=== PATIENT | female | born 1955 | race Caucasian/White ===

== ENCOUNTER 2017-11-06 01:32 | Inpatient (IN) | payer MEDICARE ==
[2017-11-06] MEDS: IV NORMAL SALINE 1000ML BAG 1,000 ML IV ×2 (04:16→18:24)
[2017-11-06] MEDS: ONDANSETRON PF 4 MG/2 ML VIAL. IV ×3 (04:17→19:42)
[2017-11-06] MEDS: KETOROLAC 30 MG/ML INJ. IV ×3 (04:17→18:22)
[2017-11-06] MEDS: PANTOPRAZOLE IV PUSH 40 MG VIAL. IVP (06:57)
[2017-11-06 07:15] LABS: POC GLUCOSE 229 mg/dL (70-99)
[2017-11-06 08:23] LABS: POC GLUCOSE 182 mg/dL (70-99)
[2017-11-06] MEDS: MORPHINE SULFATE 4 MG/ML DISP.SYRIN. IV ×5 (08:35→19:43)
[2017-11-06] MEDS: IOHEXOL 300 MG/ML 100ML VIAL. PO ×2 (09:45→11:57)
[2017-11-06] MEDS ORDERED: CONTRAST GIVEN MC (09:45)
[2017-11-06 10:13] LABS: HEMATOCRIT 44.3 % (36.0-47.0); HEMOGLOBIN 15.2 g/dL (12.0-15.5); MEAN CORPUSCULAR HEMOGLOBIN 32 pg (25-35); MEAN CORPUSCULAR HGB CONC 34 g/dL (31-37); MEAN CORPUSCULAR VOLUME 92 fL (79-100); PLATELET COUNT 352 x10^3/uL (140-400); RED BLOOD COUNT 4.82 x10^6/uL (3.50-5.40); RED CELL DISTRIBUTION WIDTH 13.6 % (11.5-14.5); WHITE BLOOD COUNT 10.3 x10^3/uL (4.0-11.0)
[2017-11-06 10:15] LABS: ANION GAP 2 (6-14); BLOOD UREA NITROGEN 21 mg/dL (7-20); CALCIUM 9.1 mg/dL (8.5-10.1); CARBON DIOXIDE 35 mmol/L (21-32); CHLORIDE 99 mmol/L (98-107); GFR 56.4; GLUCOSE 234 mg/dL (70-99); POTASSIUM 4.8 mmol/L (3.5-5.1); SODIUM 136 mmol/L (136-145)
[2017-11-06] MEDS ORDERED: DEXTROSE 50% 25 GM / 50ML DISP.SYRIN. IV (11:45)
[2017-11-06] MEDS: IPRATRPIUM/ALBUTEROL 0.5/2.5MG 3 ML NEBU. NEB ×3 (11:52→20:00)
[2017-11-06] MEDS ORDERED: IPRATRPIUM/ALBUTEROL 0.5/2.5MG 3 ML NEBU. NEB (12:00)
[2017-11-06 14:51] LABS: POC GLUCOSE 286 mg/dL (70-99)
[2017-11-06] MEDS: ENOXAPARIN 40 MG/0.4 ML SYRINGE. SQ (15:59)
[2017-11-06] MEDS: INSULIN LISPRO 300 UNITS/3 ML INSULN.PEN. SQ ×4 (16:08→17:00)
[2017-11-06 16:22] LABS: INR 1.1 (0.8-1.1); PROTHROMBIN TIME PATIENT 13.4 SEC (11.7-14.0)
[2017-11-06 21:08] LABS: POC GLUCOSE 233 mg/dL (70-99)
[2017-11-06] MEDS: INSULIN GLARGINE 300 UNITS/3 ML INSULN.PEN. SQ (21:52)
[2017-11-06] MEDS ORDERED: PROMETHAZINE 12.5 MG TABLET. PO (23:15)
[2017-11-07] MEDS: ONDANSETRON PF 4 MG/2 ML VIAL. IV ×2 (00:12→08:27)
[2017-11-07] MEDS: MORPHINE SULFATE 4 MG/ML DISP.SYRIN. IV ×5 (00:12→18:01)
[2017-11-07] MEDS: PROMETHAZINE 12.5 MG SUPP.RECT. PR (02:01)
[2017-11-07 04:34] LABS: HEMATOCRIT 45.4 % (36.0-47.0); HEMOGLOBIN 15.3 g/dL (12.0-15.5); MEAN CORPUSCULAR HEMOGLOBIN 31 pg (25-35); MEAN CORPUSCULAR HGB CONC 34 g/dL (31-37); MEAN CORPUSCULAR VOLUME 93 fL (79-100); PLATELET COUNT 349 x10^3/uL (140-400); RED CELL DISTRIBUTION WIDTH 13.4 % (11.5-14.5); WHITE BLOOD COUNT 10.6 x10^3/uL (4.0-11.0)
[2017-11-07 04:51] LABS: ALBUMIN 3.2 g/dL (3.4-5.0); ALBUMIN/GLOBULIN RATIO 0.7 (1.0-1.7); ALK PHOS 120 U/L (46-116); ALT (SGPT) 27 U/L (14-59); ANION GAP 5 (6-14); AST (SGOT) 19 U/L (15-37); BLOOD UREA NITROGEN 27 mg/dL (7-20); BUN/CREATININE RATIO 27 (6-20); CALCIUM 9.5 mg/dL (8.5-10.1); CARBON DIOXIDE 32 mmol/L (21-32); CHLORIDE 100 mmol/L (98-107); GFR 56.4; GLUCOSE 259 mg/dL (70-99); LIPASE 65 U/L (73-393); POTASSIUM 4.6 mmol/L (3.5-5.1); SODIUM 137 mmol/L (136-145); TOTAL BILIRUBIN 1.2 mg/dL (0.2-1.0)
[2017-11-07] MEDS: IV NORMAL SALINE 1000ML BAG 1,000 ML IV ×4 (05:00→17:35)
[2017-11-07] MEDS: PANTOPRAZOLE 40 MG TABLET.DR. PO (05:33)
[2017-11-07] MEDS: IPRATRPIUM/ALBUTEROL 0.5/2.5MG 3 ML NEBU. NEB ×5 (07:11→19:34)
[2017-11-07 07:55] LABS: SEDIMENTATION RATE 30 (0-25)
[2017-11-07] MEDS: INSULIN LISPRO 300 UNITS/3 ML INSULN.PEN. SQ ×6 (08:00→17:00)
[2017-11-07 08:14] LABS: POC GLUCOSE 256 mg/dL (70-99)
[2017-11-07] MEDS: KETOROLAC 30 MG/ML INJ. IV (08:28)
[2017-11-07] MEDS: IV RINGERS,LACTATED 1000ML 1,000 ML IV (09:04)
[2017-11-07] MEDS ORDERED: ONDANSETRON PF 4 MG/2 ML VIAL. IV ×2 (09:15→12:15)
[2017-11-07] MEDS ORDERED: HYDROmorphone 2 MG/ML VIAL IV (09:15)
[2017-11-07] MEDS ORDERED: MORPHINE SULFATE 2 MG/ML DISP.SYRIN. IV (09:15)
[2017-11-07] MEDS ORDERED: fentaNYL PF VIAL 100 MCG/2 ML VIAL IV ×2 (09:15)
[2017-11-07] MEDS ORDERED: PROCHLORPERAZINE 10 MG/2 ML VIAL. IV (09:15)
[2017-11-07] MEDS ORDERED: LIDOCAINE 1% PF 2 ML VIAL. ID (09:15)
[2017-11-07] MEDS ORDERED: LIDOCAINE 2% PF Vial for OR 5 ML VIAL. (09:19)
[2017-11-07] MEDS ORDERED: SUCCINYLCHOLINE 200 MG/10 ML VIAL. (09:19)
[2017-11-07] MEDS ORDERED: PROPOFOL 20 ML IV (09:19)
[2017-11-07] MEDS ORDERED: ROCURONIUM 50 MG/5 ML VIAL. ×2 (09:19→11:31)
[2017-11-07] MEDS ORDERED: DEXAMETHASONE SOD PHOS 20 MG/5 ML VIAL. (09:19)
[2017-11-07] MEDS ORDERED: MIDAZOLAM HCL/PF 2 MG/2 ML VIAL. (09:20)
[2017-11-07] MEDS ORDERED: fentaNYL PF VIAL 100 MCG/2 ML VIAL ×2 (09:20→11:22)
[2017-11-07 10:01] LABS: POC GLUCOSE 274 mg/dL (70-99)
[2017-11-07] MEDS: INSULIN REGULAR 100 UNIT/ML 3ML VIAL. SQ (10:07)
[2017-11-07] MEDS ORDERED: ceFAZolin SODIUM 3 GM in IV DEXTROSE 5% 100 ML IV (10:15)
[2017-11-07] MEDS ORDERED: GLYCOPYRROLATE 1 MG/5 ML VIAL. (11:33)
[2017-11-07] MEDS ORDERED: NEOSTIGMINE METHYLSULFATE 5 MG/5 ML SYRINGE. (11:33)
[2017-11-07] MEDS: ENOXAPARIN 40 MG/0.4 ML SYRINGE. SQ (11:53)
[2017-11-07] MEDS ORDERED: DESFLURANE 61 TO 120 MINUTES IH (11:55)
[2017-11-07] MEDS ORDERED: 0.9 % SODIUM CHLORIDE 10 ML DISP.SYRIN. IV (12:15)
[2017-11-07] MEDS ORDERED: oxyCODONE/APAP 5/325 1 TAB TABLET PO (12:15)
[2017-11-07] MEDS ORDERED: MORPHINE SULFATE 4 MG/ML DISP.SYRIN. IV (12:15)
[2017-11-07] MEDS: INSULIN REGULAR VIAL 150 UNIT in 0.9 % SODIUM CHLORIDE 150ML 150 ML IV ×2 (12:48→14:03)
[2017-11-07 14:07] LABS: POC GLUCOSE 232 mg/dL (70-99)
[2017-11-07 14:07] LABS: POC GLUCOSE 207 mg/dL (70-99)
[2017-11-07 14:41] LABS: POC GLUCOSE 239 mg/dL (70-99)
[2017-11-07] MEDS ORDERED: INSULIN GLARGINE 300 UNITS/3 ML INSULN.PEN. SQ (15:30)
[2017-11-07] MEDS: PANTOPRAZOLE IV PUSH 40 MG VIAL. IVP (15:38)
[2017-11-07] MEDS: INSULIN GLARGINE 300 UNITS/3 ML INSULN.PEN. SQ ×2 (15:42→21:30)
[2017-11-07 16:30] LABS: POC GLUCOSE 198 mg/dL (70-99)
[2017-11-07 17:12] LABS: POC GLUCOSE 181 mg/dL (70-99)
[2017-11-07 19:05] LABS: MEAN CORPUSCULAR HEMOGLOBIN 31 pg (25-35); MEAN CORPUSCULAR HGB CONC 33 g/dL (31-37); MEAN CORPUSCULAR VOLUME 93 fL (79-100); PLATELET COUNT 354 x10^3/uL (140-400); RED BLOOD COUNT 4.84 x10^6/uL (3.50-5.40); RED CELL DISTRIBUTION WIDTH 13.7 % (11.5-14.5)
[2017-11-07 20:52] LABS: POC GLUCOSE 199 mg/dL (70-99)
[2017-11-07] MEDS: DOCUSATE SODIUM 100 MG CAPSULE. PO (21:00)
[2017-11-08 05:27] LABS: ADD MAN DIFF? NO
[2017-11-08 05:46] LABS: BASO # 0.1 x10^3/uL (0.0-0.2); BASO % 0 % (0-3); EOS % 0 % (0-3); HEMATOCRIT 47.7 % (36.0-47.0); HEMOGLOBIN 15.4 g/dL (12.0-15.5); LYMPH # 0.6 x10^3/uL (1.0-4.8); LYMPH % 5 % (24-48); MEAN CORPUSCULAR HEMOGLOBIN 31 pg (25-35); MEAN CORPUSCULAR HGB CONC 32 g/dL (31-37); MONO # 1.2 x10^3/uL (0.0-1.1); MONO % 10 % (0-9); NEUT # 10.8 x10^3uL (1.8-7.7); NEUT % 85 % (31-73); PLATELET COUNT 346 x10^3/uL (140-400); RED BLOOD COUNT 4.97 x10^6/uL (3.50-5.40); RED CELL DISTRIBUTION WIDTH 14.3 % (11.5-14.5); WHITE BLOOD COUNT 12.7 x10^3/uL (4.0-11.0)
[2017-11-08 05:49] LABS: MEAN CORPUSCULAR VOLUME 95 fL (79-100)
[2017-11-08 06:00] LABS: ANION GAP 12 (6-14); BLOOD UREA NITROGEN 28 mg/dL (7-20); CALCIUM 9.1 mg/dL (8.5-10.1); CARBON DIOXIDE 28 mmol/L (21-32); CHLORIDE 99 mmol/L (98-107); CREATININE 1.1 mg/dL (0.6-1.0); GFR 50.5; GLUCOSE 192 mg/dL (70-99); POTASSIUM 4.7 mmol/L (3.5-5.1); SODIUM 139 mmol/L (136-145)
[2017-11-08] MEDS: PANTOPRAZOLE 40 MG TABLET.DR. PO (06:56)
[2017-11-08] MEDS: oxyCODONE/APAP 5/325 1 TAB TABLET PO ×3 (06:58→21:35)
[2017-11-08] MEDS: IV NORMAL SALINE 1000ML BAG 1,000 ML IV ×4 (06:58→16:27)
[2017-11-08] MEDS: IPRATRPIUM/ALBUTEROL 0.5/2.5MG 3 ML NEBU. NEB ×4 (07:06→18:21)
[2017-11-08 07:45] LABS: POC GLUCOSE 235 mg/dL (70-99)
[2017-11-08] MEDS: DOCUSATE SODIUM 100 MG CAPSULE. PO ×2 (08:49→21:23)
[2017-11-08] MEDS: INSULIN LISPRO 300 UNITS/3 ML INSULN.PEN. SQ ×6 (08:56→17:39)
[2017-11-08 11:36] LABS: POC GLUCOSE 243 mg/dL (70-99)
[2017-11-08] MEDS: KETOROLAC 30 MG/ML INJ. IV (16:26)
[2017-11-08 16:46] LABS: POC GLUCOSE 190 mg/dL (70-99)
[2017-11-08] MEDS: ONDANSETRON PF 4 MG/2 ML VIAL. IV (18:35)
[2017-11-08 21:10] LABS: POC GLUCOSE 222 mg/dL (70-99)
[2017-11-08] MEDS: INSULIN GLARGINE 300 UNITS/3 ML INSULN.PEN. SQ (21:29)
[2017-11-09] MEDS: KETOROLAC 30 MG/ML INJ. IV ×4 (00:03→18:16)
[2017-11-09] MEDS: oxyCODONE/APAP 5/325 1 TAB TABLET PO (03:20)
[2017-11-09] MEDS: PANTOPRAZOLE 40 MG TABLET.DR. PO (06:14)
[2017-11-09] MEDS: IV NORMAL SALINE 1000ML BAG 1,000 ML IV ×3 (06:15→16:30)
[2017-11-09] MEDS: IPRATRPIUM/ALBUTEROL 0.5/2.5MG 3 ML NEBU. NEB ×4 (07:18→19:46)
[2017-11-09 07:55] LABS: POC GLUCOSE 192 mg/dL (70-99)
[2017-11-09] MEDS: INSULIN LISPRO 300 UNITS/3 ML INSULN.PEN. SQ ×6 (08:00→17:00)
[2017-11-09] MEDS: DOCUSATE SODIUM 100 MG CAPSULE. PO ×2 (08:52→22:34)
[2017-11-09] MEDS: ONDANSETRON PF 4 MG/2 ML VIAL. IV ×3 (08:59→22:34)
[2017-11-09 11:29] LABS: POC GLUCOSE 215 mg/dL (70-99)
[2017-11-09] MEDS: PROMETHAZINE 12.5 MG SUPP.RECT. PR (12:06)
[2017-11-09] MEDS ORDERED: traMADol 50 MG TABLET PO (13:30)
[2017-11-09] MEDS ORDERED: ONDANSETRON ODT 4 MG TAB.RAPDIS. PO (13:30)
[2017-11-09] MEDS: buPROPion XL 150 MG TAB.ER.24H. PO (14:00)
[2017-11-09] MEDS: METOPROLOL TART IMMED RELEASE 25 MG TABLET. PO ×2 (14:00→22:35)
[2017-11-09] MEDS: LISINOPRIL 5 MG TABLET. PO (14:00)
[2017-11-09] MEDS: VENLAFAXINE 75 MG TABLET. PO ×2 (14:00→22:35)
[2017-11-09 17:15] LABS: POC GLUCOSE 199 mg/dL (70-99)
[2017-11-09] MEDS: MORPHINE SULFATE 4 MG/ML DISP.SYRIN. IV ×2 (17:17→22:34)
[2017-11-09] MEDS: IV 1/2 NORMAL SALINE 1,000 ML IV (17:17)
[2017-11-09 20:39] LABS: POC GLUCOSE 167 mg/dL (70-99)
[2017-11-09] MEDS: SIMVASTATIN 40 MG TABLET. PO (22:35)
[2017-11-09] MEDS: INSULIN GLARGINE 300 UNITS/3 ML INSULN.PEN. SQ (22:38)
[2017-11-10] MEDS: KETOROLAC 30 MG/ML INJ. IV ×3 (00:19→14:55)
[2017-11-10] MEDS: MORPHINE SULFATE 4 MG/ML DISP.SYRIN. IV ×2 (03:40→20:55)
[2017-11-10 04:38] LABS: HEMATOCRIT 37.9 % (36.0-47.0); MEAN CORPUSCULAR HEMOGLOBIN 32 pg (25-35); MEAN CORPUSCULAR HGB CONC 34 g/dL (31-37); MEAN CORPUSCULAR VOLUME 93 fL (79-100); PLATELET COUNT 314 x10^3/uL (140-400); RED BLOOD COUNT 4.07 x10^6/uL (3.50-5.40); RED CELL DISTRIBUTION WIDTH 13.6 % (11.5-14.5); WHITE BLOOD COUNT 4.7 x10^3/uL (4.0-11.0)
[2017-11-10 04:54] LABS: ALBUMIN 2.3 g/dL (3.4-5.0); ALBUMIN/GLOBULIN RATIO 0.5 (1.0-1.7); ALK PHOS 89 U/L (46-116); ALT (SGPT) 70 U/L (14-59); ANION GAP 5 (6-14); AST (SGOT) 49 U/L (15-37); BLOOD UREA NITROGEN 17 mg/dL (7-20); BUN/CREATININE RATIO 21 (6-20); CALCIUM 8.2 mg/dL (8.5-10.1); CARBON DIOXIDE 29 mmol/L (21-32); CHLORIDE 100 mmol/L (98-107); CREATININE 0.8 mg/dL (0.6-1.0); GFR 72.9; GLUCOSE 163 mg/dL (70-99); POTASSIUM 4.1 mmol/L (3.5-5.1); SODIUM 134 mmol/L (136-145); TOTAL BILIRUBIN 0.7 mg/dL (0.2-1.0); TOTAL PROTEIN 6.5 g/dL (6.4-8.2)
[2017-11-10] MEDS: IV 1/2 NORMAL SALINE 1,000 ML IV ×2 (05:00→17:30)
[2017-11-10] MEDS: IPRATRPIUM/ALBUTEROL 0.5/2.5MG 3 ML NEBU. NEB ×4 (07:09→19:28)
[2017-11-10 07:33] LABS: POC GLUCOSE 133 mg/dL (70-99)
[2017-11-10] MEDS: PANTOPRAZOLE 40 MG TABLET.DR. PO (07:44)
[2017-11-10] MEDS: INSULIN LISPRO 300 UNITS/3 ML INSULN.PEN. SQ ×6 (08:00→16:51)
[2017-11-10] MEDS: buPROPion XL 150 MG TAB.ER.24H. PO (08:51)
[2017-11-10] MEDS: VENLAFAXINE 75 MG TABLET. PO ×2 (08:51→20:56)
[2017-11-10] MEDS: LISINOPRIL 5 MG TABLET. PO (08:52)
[2017-11-10] MEDS: METOPROLOL TART IMMED RELEASE 25 MG TABLET. PO ×2 (08:52→20:56)
[2017-11-10] MEDS: DOCUSATE SODIUM 100 MG CAPSULE. PO ×2 (09:00→20:56)
[2017-11-10] MEDS: ONDANSETRON PF 4 MG/2 ML VIAL. IV ×3 (09:04→20:55)
[2017-11-10 11:29] LABS: POC GLUCOSE 139 mg/dL (70-99)
[2017-11-10] MEDS: PROMETHAZINE 25 MG SUPP.RECT. RC (12:37)
[2017-11-10 15:09] LABS: C DIFF BY PCR Negative (Negative)
[2017-11-10 16:12] LABS: POC GLUCOSE 106 mg/dL (70-99)
[2017-11-10 20:34] LABS: POC GLUCOSE 105 mg/dL (70-99)
[2017-11-10] MEDS: SIMVASTATIN 40 MG TABLET. PO (20:56)
[2017-11-10] MEDS: INSULIN GLARGINE 300 UNITS/3 ML INSULN.PEN. SQ (21:22)
[2017-11-11] MEDS: MORPHINE SULFATE 4 MG/ML DISP.SYRIN. IV ×2 (04:00→15:27)
[2017-11-11] MEDS: ONDANSETRON PF 4 MG/2 ML VIAL. IV ×4 (04:00→21:54)
[2017-11-11 05:30] LABS: HEMATOCRIT 38.3 % (36.0-47.0); HEMOGLOBIN 12.9 g/dL (12.0-15.5); MEAN CORPUSCULAR HEMOGLOBIN 31 pg (25-35); MEAN CORPUSCULAR HGB CONC 34 g/dL (31-37); MEAN CORPUSCULAR VOLUME 93 fL (79-100); PLATELET COUNT 335 x10^3/uL (140-400); RED BLOOD COUNT 4.14 x10^6/uL (3.50-5.40); RED CELL DISTRIBUTION WIDTH 13.3 % (11.5-14.5); WHITE BLOOD COUNT 6.3 x10^3/uL (4.0-11.0)
[2017-11-11 05:42] LABS: ANION GAP 7 (6-14); BLOOD UREA NITROGEN 15 mg/dL (7-20); CALCIUM 8.3 mg/dL (8.5-10.1); CARBON DIOXIDE 28 mmol/L (21-32); CHLORIDE 101 mmol/L (98-107); CREATININE 0.7 mg/dL (0.6-1.0); GFR 85.1; GLUCOSE 94 mg/dL (70-99); SODIUM 136 mmol/L (136-145)
[2017-11-11] MEDS: PANTOPRAZOLE 40 MG TABLET.DR. PO (06:20)
[2017-11-11] MEDS: IV 1/2 NORMAL SALINE 1,000 ML IV ×2 (06:20→18:30)
[2017-11-11] MEDS: KETOROLAC 30 MG/ML INJ. IV ×2 (06:20→09:44)
[2017-11-11] MEDS: PROMETHAZINE 25 MG SUPP.RECT. RC (06:23)
[2017-11-11] MEDS: IPRATRPIUM/ALBUTEROL 0.5/2.5MG 3 ML NEBU. NEB ×2 (07:08→21:00)
[2017-11-11] MEDS: INSULIN LISPRO 300 UNITS/3 ML INSULN.PEN. SQ ×6 (07:42→17:00)
[2017-11-11 08:40] LABS: POC GLUCOSE 69 mg/dL (70-99)
[2017-11-11 08:40] LABS: POC GLUCOSE 89 mg/dL (70-99)
[2017-11-11] MEDS: buPROPion XL 150 MG TAB.ER.24H. PO (09:28)
[2017-11-11] MEDS: VENLAFAXINE 75 MG TABLET. PO ×2 (09:28→20:55)
[2017-11-11] MEDS: LISINOPRIL 5 MG TABLET. PO (09:28)
[2017-11-11] MEDS: METOPROLOL TART IMMED RELEASE 25 MG TABLET. PO ×2 (09:29→20:56)
[2017-11-11] MEDS: DOCUSATE SODIUM 100 MG CAPSULE. PO ×2 (09:40→20:57)
[2017-11-11 14:12] LABS: POC GLUCOSE 75 mg/dL (70-99)
[2017-11-11 17:47] LABS: POC GLUCOSE 75 mg/dL (70-99)
[2017-11-11] MEDS: SIMVASTATIN 40 MG TABLET. PO (20:55)
[2017-11-11] MEDS: INSULIN GLARGINE 300 UNITS/3 ML INSULN.PEN. SQ (21:00)
[2017-11-11 23:50] LABS: POC GLUCOSE 116 mg/dL (70-99)
[2017-11-12] MEDS: KETOROLAC 30 MG/ML INJ. IV ×2 (00:48→07:59)
[2017-11-12] MEDS: IPRATRPIUM/ALBUTEROL 0.5/2.5MG 3 ML NEBU. NEB ×2 (07:24→19:25)
[2017-11-12] MEDS: IV 1/2 NORMAL SALINE 1,000 ML IV ×2 (07:49→18:38)
[2017-11-12] MEDS: PANTOPRAZOLE 40 MG TABLET.DR. PO (07:51)
[2017-11-12] MEDS: INSULIN LISPRO 300 UNITS/3 ML INSULN.PEN. SQ ×6 (08:00→17:00)
[2017-11-12] MEDS: DOCUSATE SODIUM 100 MG CAPSULE. PO ×2 (08:02→21:05)
[2017-11-12 08:27] LABS: POC GLUCOSE 65 mg/dL (70-99)
[2017-11-12 08:27] LABS: POC GLUCOSE 72 mg/dL (70-99)
[2017-11-12] MEDS: VENLAFAXINE 75 MG TABLET. PO ×2 (09:51→21:05)
[2017-11-12] MEDS: buPROPion XL 150 MG TAB.ER.24H. PO (09:51)
[2017-11-12] MEDS: LISINOPRIL 5 MG TABLET. PO (09:52)
[2017-11-12] MEDS: METOPROLOL TART IMMED RELEASE 25 MG TABLET. PO ×2 (09:52→21:05)
[2017-11-12 11:52] LABS: POC GLUCOSE 93 mg/dL (70-99)
[2017-11-12] MEDS: ONDANSETRON PF 4 MG/2 ML VIAL. IV ×2 (14:55→21:13)
[2017-11-12] MEDS: oxyCODONE/APAP 5/325 1 TAB TABLET PO ×2 (14:57→21:05)
[2017-11-12 17:39] LABS: POC GLUCOSE 105 mg/dL (70-99)
[2017-11-12 20:53] LABS: POC GLUCOSE 82 mg/dL (70-99)
[2017-11-12] MEDS: INSULIN GLARGINE 300 UNITS/3 ML INSULN.PEN. SQ (21:00)
[2017-11-12] MEDS: SIMVASTATIN 40 MG TABLET. PO (21:05)
[2017-11-13 05:34] LABS: ADD MAN DIFF? NO
[2017-11-13 05:45] LABS: BASO % 1 % (0-3); EOS # 0.2 x10^3/uL (0.0-0.7); EOS % 3 % (0-3); HEMATOCRIT 36.4 % (36.0-47.0); HEMOGLOBIN 12.3 g/dL (12.0-15.5); LYMPH % 26 % (24-48); MEAN CORPUSCULAR HEMOGLOBIN 32 pg (25-35); MEAN CORPUSCULAR HGB CONC 34 g/dL (31-37); MEAN CORPUSCULAR VOLUME 93 fL (79-100); MONO # 1.1 x10^3/uL (0.0-1.1); MONO % 13 % (0-9); NEUT # 4.6 x10^3uL (1.8-7.7); NEUT % 58 % (31-73); PLATELET COUNT 340 x10^3/uL (140-400); RED BLOOD COUNT 3.91 x10^6/uL (3.50-5.40); RED CELL DISTRIBUTION WIDTH 13.4 % (11.5-14.5)
[2017-11-13 05:59] LABS: ANION GAP 7 (6-14); BLOOD UREA NITROGEN 12 mg/dL (7-20); CALCIUM 7.7 mg/dL (8.5-10.1); CARBON DIOXIDE 28 mmol/L (21-32); CHLORIDE 103 mmol/L (98-107); CREATININE 0.7 mg/dL (0.6-1.0); GFR 85.1; GLUCOSE 86 mg/dL (70-99); POTASSIUM 3.6 mmol/L (3.5-5.1); SODIUM 138 mmol/L (136-145)
[2017-11-13] MEDS: PANTOPRAZOLE 40 MG TABLET.DR. PO (07:06)
[2017-11-13] MEDS: IV 1/2 NORMAL SALINE 1,000 ML IV (07:07)
[2017-11-13] MEDS: INSULIN LISPRO 300 UNITS/3 ML INSULN.PEN. SQ ×6 (08:00→17:00)
[2017-11-13 08:48] LABS: POC GLUCOSE 108 mg/dL (70-99)
[2017-11-13] MEDS: IPRATRPIUM/ALBUTEROL 0.5/2.5MG 3 ML NEBU. NEB ×2 (09:00→20:09)
[2017-11-13] MEDS: DOCUSATE SODIUM 100 MG CAPSULE. PO ×2 (09:00→21:12)
[2017-11-13] MEDS: VENLAFAXINE 75 MG TABLET. PO ×2 (09:56→21:12)
[2017-11-13] MEDS: buPROPion XL 150 MG TAB.ER.24H. PO (09:56)
[2017-11-13] MEDS: LISINOPRIL 5 MG TABLET. PO (09:57)
[2017-11-13] MEDS: METOPROLOL TART IMMED RELEASE 25 MG TABLET. PO ×2 (09:58→21:12)
[2017-11-13] MEDS: oxyCODONE/APAP 5/325 1 TAB TABLET PO ×2 (10:02→19:02)
[2017-11-13] MEDS: ONDANSETRON PF 4 MG/2 ML VIAL. IV ×2 (10:03→14:00)
[2017-11-13 12:19] LABS: POC GLUCOSE 124 mg/dL (70-99)
[2017-11-13 16:55] LABS: POC GLUCOSE 116 mg/dL (70-99)
[2017-11-13 20:31] LABS: POC GLUCOSE 138 mg/dL (70-99)
[2017-11-13] MEDS: SIMVASTATIN 40 MG TABLET. PO (21:12)
[2017-11-13] MEDS: INSULIN GLARGINE 300 UNITS/3 ML INSULN.PEN. SQ (21:17)
[2017-11-14 04:18] LABS: ADD MAN DIFF? NO
[2017-11-14 04:28] LABS: BASO # 0.1 x10^3/uL (0.0-0.2); BASO % 1 % (0-3); EOS # 0.3 x10^3/uL (0.0-0.7); EOS % 2 % (0-3); HEMATOCRIT 38.4 % (36.0-47.0); HEMOGLOBIN 12.8 g/dL (12.0-15.5); LYMPH # 2.2 x10^3/uL (1.0-4.8); LYMPH % 16 % (24-48); MEAN CORPUSCULAR HEMOGLOBIN 31 pg (25-35); MEAN CORPUSCULAR HGB CONC 33 g/dL (31-37); MEAN CORPUSCULAR VOLUME 94 fL (79-100); MONO # 1.6 x10^3/uL (0.0-1.1); MONO % 12 % (0-9); NEUT # 9.5 x10^3uL (1.8-7.7); NEUT % 70 % (31-73); PLATELET COUNT 356 x10^3/uL (140-400); RED CELL DISTRIBUTION WIDTH 13.5 % (11.5-14.5); WHITE BLOOD COUNT 13.7 x10^3/uL (4.0-11.0)
[2017-11-14 04:42] LABS: ANION GAP 2 (6-14); BLOOD UREA NITROGEN 12 mg/dL (7-20); CALCIUM 8.4 mg/dL (8.5-10.1); CARBON DIOXIDE 34 mmol/L (21-32); CHLORIDE 103 mmol/L (98-107); CREATININE 0.8 mg/dL (0.6-1.0); GFR 72.9; GLUCOSE 149 mg/dL (70-99); POTASSIUM 3.9 mmol/L (3.5-5.1); SODIUM 139 mmol/L (136-145)
[2017-11-14] MEDS ORDERED: PANTOPRAZOLE 40 MG TABLET.DR. PO (06:00)
[2017-11-14] MEDS: PANTOPRAZOLE 40 MG TABLET.DR. PO (07:30)
[2017-11-14] MEDS: INSULIN LISPRO 300 UNITS/3 ML INSULN.PEN. SQ ×6 (08:00→17:00)
[2017-11-14] MEDS: IPRATRPIUM/ALBUTEROL 0.5/2.5MG 3 ML NEBU. NEB ×2 (08:10→19:42)
[2017-11-14 08:13] LABS: POC GLUCOSE 130 mg/dL (70-99)
[2017-11-14] MEDS: buPROPion XL 150 MG TAB.ER.24H. PO (08:20)
[2017-11-14] MEDS: METOPROLOL TART IMMED RELEASE 25 MG TABLET. PO ×2 (08:22→22:09)
[2017-11-14] MEDS: LISINOPRIL 5 MG TABLET. PO (08:22)
[2017-11-14] MEDS: VENLAFAXINE 75 MG TABLET. PO ×2 (08:22→22:12)
[2017-11-14] MEDS: DOCUSATE SODIUM 100 MG CAPSULE. PO ×2 (08:22→22:08)
[2017-11-14 11:29] LABS: POC GLUCOSE 183 mg/dL (70-99)
[2017-11-14 17:09] LABS: POC GLUCOSE 87 mg/dL (70-99)
[2017-11-14] MEDS: oxyCODONE/APAP 5/325 1 TAB TABLET PO ×2 (17:50→22:10)
[2017-11-14 21:04] LABS: POC GLUCOSE 164 mg/dL (70-99)
[2017-11-14] MEDS: SIMVASTATIN 40 MG TABLET. PO (22:08)
[2017-11-14] MEDS: INSULIN GLARGINE 300 UNITS/3 ML INSULN.PEN. SQ (22:15)
[2017-11-14] MEDS: NYSTATIN TOPICAL POWDER 15GM BOTTLE. TP (22:16)
[2017-11-15 04:39] LABS: BASO # 0.1 x10^3/uL (0.0-0.2); BASO % 0 % (0-3); EOS # 0.3 x10^3/uL (0.0-0.7); EOS % 2 % (0-3); HEMATOCRIT 38.9 % (36.0-47.0); HEMOGLOBIN 12.9 g/dL (12.0-15.5); LYMPH # 1.9 x10^3/uL (1.0-4.8); LYMPH % 13 % (24-48); MEAN CORPUSCULAR HEMOGLOBIN 31 pg (25-35); MEAN CORPUSCULAR HGB CONC 33 g/dL (31-37); MEAN CORPUSCULAR VOLUME 94 fL (79-100); MONO % 13 % (0-9); NEUT # 10.6 x10^3uL (1.8-7.7); NEUT % 71 % (31-73); PLATELET COUNT 353 x10^3/uL (140-400); RED BLOOD COUNT 4.15 x10^6/uL (3.50-5.40); RED CELL DISTRIBUTION WIDTH 13.7 % (11.5-14.5); WHITE BLOOD COUNT 14.8 x10^3/uL (4.0-11.0)
[2017-11-15 05:06] LABS: ANION GAP 1 (6-14); BLOOD UREA NITROGEN 11 mg/dL (7-20); CALCIUM 8.7 mg/dL (8.5-10.1); CARBON DIOXIDE 37 mmol/L (21-32); CHLORIDE 100 mmol/L (98-107); CREATININE 0.8 mg/dL (0.6-1.0); GFR 72.9; GLUCOSE 71 mg/dL (70-99); POTASSIUM 3.9 mmol/L (3.5-5.1); SODIUM 138 mmol/L (136-145)
[2017-11-15 05:31] LABS: ADD MAN DIFF? YES
[2017-11-15] MEDS: PANTOPRAZOLE 40 MG TABLET.DR. PO (06:23)
[2017-11-15] MEDS: IPRATRPIUM/ALBUTEROL 0.5/2.5MG 3 ML NEBU. NEB ×2 (07:43→20:03)
[2017-11-15] MEDS: oxyCODONE/APAP 5/325 1 TAB TABLET PO ×3 (08:01→21:54)
[2017-11-15] MEDS: buPROPion XL 150 MG TAB.ER.24H. PO (08:02)
[2017-11-15] MEDS: VENLAFAXINE 75 MG TABLET. PO ×2 (08:02→21:52)
[2017-11-15] MEDS: DOCUSATE SODIUM 100 MG CAPSULE. PO ×2 (08:02→21:52)
[2017-11-15] MEDS: LISINOPRIL 5 MG TABLET. PO (08:03)
[2017-11-15] MEDS: METOPROLOL TART IMMED RELEASE 25 MG TABLET. PO ×2 (08:04→21:53)
[2017-11-15 08:07] LABS: POC GLUCOSE 233 mg/dL (70-99)
[2017-11-15] MEDS: INSULIN LISPRO 300 UNITS/3 ML INSULN.PEN. SQ ×6 (08:15→17:43)
[2017-11-15 09:03] LABS: % BANDS 4 % (0-9); % BASOS 1 % (0-3); % EOS 3 % (0-5); % LYMPHS 10 % (24-48); % MONOS 11 % (0-10); % SEGS 71 % (35-66)
[2017-11-15 09:04] LABS: PLT ESTIMATE ADEQUATE (ADEQUATE)
[2017-11-15 09:05] LABS: TOXIC GRANULATION PRESENT
[2017-11-15 12:11] LABS: POC GLUCOSE 253 mg/dL (70-99)
[2017-11-15 17:13] LABS: POC GLUCOSE 102 mg/dL (70-99)
[2017-11-15 21:29] LABS: POC GLUCOSE 174 mg/dL (70-99)
[2017-11-15] MEDS: SIMVASTATIN 40 MG TABLET. PO (21:53)
[2017-11-15] MEDS: INSULIN GLARGINE 300 UNITS/3 ML INSULN.PEN. SQ (21:56)
[2017-11-15] MEDS: ONDANSETRON PF 4 MG/2 ML VIAL. IV (23:43)
[2017-11-16 04:26] LABS: ADD MAN DIFF? NO
[2017-11-16 04:34] LABS: BASO # 0.1 x10^3/uL (0.0-0.2); BASO % 1 % (0-3); EOS # 0.3 x10^3/uL (0.0-0.7); EOS % 2 % (0-3); HEMOGLOBIN 12.4 g/dL (12.0-15.5); LYMPH # 2.4 x10^3/uL (1.0-4.8); LYMPH % 18 % (24-48); MEAN CORPUSCULAR HEMOGLOBIN 31 pg (25-35); MEAN CORPUSCULAR HGB CONC 34 g/dL (31-37); MEAN CORPUSCULAR VOLUME 93 fL (79-100); MONO # 1.5 x10^3/uL (0.0-1.1); MONO % 11 % (0-9); NEUT # 9.5 x10^3uL (1.8-7.7); NEUT % 69 % (31-73); PLATELET COUNT 356 x10^3/uL (140-400); RED BLOOD COUNT 3.99 x10^6/uL (3.50-5.40); RED CELL DISTRIBUTION WIDTH 13.6 % (11.5-14.5); WHITE BLOOD COUNT 13.9 x10^3/uL (4.0-11.0)
[2017-11-16 05:04] LABS: ANION GAP 1 (6-14); BLOOD UREA NITROGEN 10 mg/dL (7-20); CALCIUM 8.4 mg/dL (8.5-10.1); CARBON DIOXIDE 36 mmol/L (21-32); CHLORIDE 101 mmol/L (98-107); CREATININE 0.8 mg/dL (0.6-1.0); GFR 72.9; GLUCOSE 135 mg/dL (70-99); POTASSIUM 4.2 mmol/L (3.5-5.1); SODIUM 138 mmol/L (136-145)
[2017-11-16] MEDS: PANTOPRAZOLE 40 MG TABLET.DR. PO (06:37)
[2017-11-16] MEDS: oxyCODONE/APAP 5/325 1 TAB TABLET PO ×3 (06:38→13:46)
[2017-11-16 07:46] LABS: POC GLUCOSE 123 mg/dL (70-99)
[2017-11-16] MEDS: INSULIN LISPRO 300 UNITS/3 ML INSULN.PEN. SQ ×4 (08:00→12:01)
[2017-11-16] MEDS: VENLAFAXINE 75 MG TABLET. PO (08:04)
[2017-11-16] MEDS: DOCUSATE SODIUM 100 MG CAPSULE. PO (08:04)
[2017-11-16] MEDS: METOPROLOL TART IMMED RELEASE 25 MG TABLET. PO (08:05)
[2017-11-16] MEDS: buPROPion XL 150 MG TAB.ER.24H. PO (08:07)
[2017-11-16] MEDS: LISINOPRIL 5 MG TABLET. PO (08:07)
[2017-11-16 11:49] LABS: POC GLUCOSE 164 mg/dL (70-99)
[2017-11-16] MEDS ORDERED: METOPROLOL TART IMMED RELEASE 25 MG TABLET. PO (21:00)
== END 2017-11-16 13:55 | DRG 354 ==
LOC: 4 NORTH 01:32
PROVIDERS: Internal Medicine
PROC: 0WQF4ZZ Repair Abdominal Wall, Percutaneous Endoscopic Approach (ICD-10-PCS; principal; 2017-11-07 10:15)
PROC: 5A09357 Assistance with Respiratory Ventilation, Less than 24 Consecutive Hours, Continuous Positive Airway Pressure (ICD-10-PCS; 2017-11-07 10:15)
PROC: 5A09357 Assistance with Respiratory Ventilation, Less than 24 Consecutive Hours, Continuous Positive Airway Pressure (ICD-10-PCS; 2017-11-07 10:15)
PROC: 5A09357 Assistance with Respiratory Ventilation, Less than 24 Consecutive Hours, Continuous Positive Airway Pressure (ICD-10-PCS; 2017-11-07 10:15)
PROC: 5A09357 Assistance with Respiratory Ventilation, Less than 24 Consecutive Hours, Continuous Positive Airway Pressure (ICD-10-PCS; 2017-11-07 10:15)
DX: K43.0 Incisional hernia with obstruction, without gangrene (principal); J96.11 Chronic respiratory failure with hypoxia; K56.609 Unspecified intestinal obstruction, unspecified as to partial versus complete obstruction; E66.2 Morbid (severe) obesity with alveolar hypoventilation; Z68.43 Body mass index [BMI] 50.0-59.9, adult; I27.81 Cor pulmonale (chronic); K56.7 Ileus, unspecified; J98.11 Atelectasis; E11.9 Type 2 diabetes mellitus without complications; E78.5 Hyperlipidemia, unspecified; F32.9 Major depressive disorder, single episode, unspecified; I10 Essential (primary) hypertension; I25.10 Atherosclerotic heart disease of native coronary artery without angina pectoris; J44.9 Chronic obstructive pulmonary disease, unspecified; N84.0 Polyp of corpus uteri; Z88.8 Allergy status to other drugs, medicaments and biological substances; Z79.4 Long term (current) use of insulin
CPT/HCPCS: 36415; 71045; 74018; 74250; 80048; 80053; 82962; 83690; 85007; 85025; 85027; 85610; 85651; 87324; 88302; 94640; 94760; 97116-GP; 97162-GP; A7015; C9113; J0330; J0690; J1100; J1650; J1815; J1885; J2250; J2270; J2405; J2704; J2710; J3010; J3490; J7030; J7620; Q9967

== ENCOUNTER 2017-11-26 12:43 | Emergency (ER) | payer MEDICARE | END 2017-11-26 14:16 | disposition home or self-care (01) | LOC: ER 12:43 | DX: T81.31XA Disruption of external operation (surgical) wound, not elsewhere classified, initial encounter (principal); Y92.89 Other specified places as the place of occurrence of the external cause | CPT/HCPCS: 99283 ==

== ENCOUNTER → 2018-01-09 | Outpatient (CLI) | payer MEDICARE | END | disposition home or self-care (01) | LOC: PMGWOUND 12:39 | DX: T81.31XA Disruption of external operation (surgical) wound, not elsewhere classified, initial encounter (principal); K21.9 Gastro-esophageal reflux disease without esophagitis; F32.9 Major depressive disorder, single episode, unspecified; G47.33 Obstructive sleep apnea (adult) (pediatric); E78.5 Hyperlipidemia, unspecified; J96.11 Chronic respiratory failure with hypoxia; E66.01 Morbid (severe) obesity due to excess calories; I25.10 Atherosclerotic heart disease of native coronary artery without angina pectoris; J44.9 Chronic obstructive pulmonary disease, unspecified; I11.0 Hypertensive heart disease with heart failure; I50.9 Heart failure, unspecified; Z68.43 Body mass index [BMI] 50.0-59.9, adult; Z79.4 Long term (current) use of insulin; Y83.8 Other surgical procedures as the cause of abnormal reaction of the patient, or of later complication, without mention of misadventure at the time of the procedure; Y92.89 Other specified places as the place of occurrence of the external cause | CPT/HCPCS: 99214 ==

== ENCOUNTER → 2018-01-16 | Outpatient (CLI) | payer MEDICARE | END | disposition home or self-care (01) | LOC: PMGWOUND 11:48 | DX: T81.31XD Disruption of external operation (surgical) wound, not elsewhere classified, subsequent encounter (principal); I25.10 Atherosclerotic heart disease of native coronary artery without angina pectoris; J44.9 Chronic obstructive pulmonary disease, unspecified; K21.9 Gastro-esophageal reflux disease without esophagitis; E78.5 Hyperlipidemia, unspecified; I11.0 Hypertensive heart disease with heart failure; I50.9 Heart failure, unspecified; F32.9 Major depressive disorder, single episode, unspecified; E66.01 Morbid (severe) obesity due to excess calories; G47.33 Obstructive sleep apnea (adult) (pediatric); E11.9 Type 2 diabetes mellitus without complications; Z90.49 Acquired absence of other specified parts of digestive tract; Z68.43 Body mass index [BMI] 50.0-59.9, adult; Z79.4 Long term (current) use of insulin; Y83.8 Other surgical procedures as the cause of abnormal reaction of the patient, or of later complication, without mention of misadventure at the time of the procedure | CPT/HCPCS: 99214 ==

== ENCOUNTER → 2018-01-24 | Outpatient (CLI) | payer MEDICARE | END | disposition home or self-care (01) | LOC: PMGWOUND 11:18 | DX: T81.31XD Disruption of external operation (surgical) wound, not elsewhere classified, subsequent encounter (principal); I25.10 Atherosclerotic heart disease of native coronary artery without angina pectoris; J44.9 Chronic obstructive pulmonary disease, unspecified; K21.9 Gastro-esophageal reflux disease without esophagitis; E78.5 Hyperlipidemia, unspecified; I11.0 Hypertensive heart disease with heart failure; I50.9 Heart failure, unspecified; F32.9 Major depressive disorder, single episode, unspecified; E66.01 Morbid (severe) obesity due to excess calories; G47.33 Obstructive sleep apnea (adult) (pediatric); E11.9 Type 2 diabetes mellitus without complications; Z90.49 Acquired absence of other specified parts of digestive tract; Z68.43 Body mass index [BMI] 50.0-59.9, adult; Z79.4 Long term (current) use of insulin; Y83.8 Other surgical procedures as the cause of abnormal reaction of the patient, or of later complication, without mention of misadventure at the time of the procedure | CPT/HCPCS: 17250 ==

== ENCOUNTER → 2018-01-31 | Outpatient (CLI) | payer MEDICARE | END | disposition home or self-care (01) | LOC: PMGWOUND 11:24 | DX: T81.31XD Disruption of external operation (surgical) wound, not elsewhere classified, subsequent encounter (principal); I25.10 Atherosclerotic heart disease of native coronary artery without angina pectoris; J44.9 Chronic obstructive pulmonary disease, unspecified; K21.9 Gastro-esophageal reflux disease without esophagitis; E78.5 Hyperlipidemia, unspecified; I11.0 Hypertensive heart disease with heart failure; I50.9 Heart failure, unspecified; F32.9 Major depressive disorder, single episode, unspecified; E66.01 Morbid (severe) obesity due to excess calories; G47.33 Obstructive sleep apnea (adult) (pediatric); E11.9 Type 2 diabetes mellitus without complications; Z90.49 Acquired absence of other specified parts of digestive tract; Z68.43 Body mass index [BMI] 50.0-59.9, adult; Z79.4 Long term (current) use of insulin; Y83.8 Other surgical procedures as the cause of abnormal reaction of the patient, or of later complication, without mention of misadventure at the time of the procedure | CPT/HCPCS: 99213 ==

== ENCOUNTER → 2018-02-07 | Outpatient (CLI) | payer MEDICARE, MEDICAID | END | disposition home or self-care (01) | LOC: PMGWOUND 10:53 | DX: T81.31XD Disruption of external operation (surgical) wound, not elsewhere classified, subsequent encounter (principal); I25.10 Atherosclerotic heart disease of native coronary artery without angina pectoris; J44.9 Chronic obstructive pulmonary disease, unspecified; K21.9 Gastro-esophageal reflux disease without esophagitis; E78.5 Hyperlipidemia, unspecified; I11.0 Hypertensive heart disease with heart failure; I50.9 Heart failure, unspecified; F32.9 Major depressive disorder, single episode, unspecified; E66.01 Morbid (severe) obesity due to excess calories; G47.33 Obstructive sleep apnea (adult) (pediatric); E11.9 Type 2 diabetes mellitus without complications; Z90.49 Acquired absence of other specified parts of digestive tract; Z68.43 Body mass index [BMI] 50.0-59.9, adult; Z79.4 Long term (current) use of insulin; Y83.8 Other surgical procedures as the cause of abnormal reaction of the patient, or of later complication, without mention of misadventure at the time of the procedure | CPT/HCPCS: 99213 ==

== ENCOUNTER → 2018-02-14 | Outpatient (CLI) | payer MEDICARE, MEDICAID ==
[2017-12-24 09:19] VITALS: BP 118/53
[~2018-02-14] MED LIST: BUPR150T6 PO; CHOL500021 PO; DOCU-109 PO; IBUP-1060 PO; INSU100C SQ; INSU100I13 SQ; INSU200I SQ; LACT100C2 PO; LISI2.5T PO; MEGE40TA PO; METF10003 PO; METO25TA4 PO; MULT-114 PO; NYST15PO9 TP; OMEP40CA5 PO; OXYC-323 PO; POTA20TA82 PO; PROM25SU3 RC; PROM25TA10 PO; SIMV40TA3 PO; TORS20TA2 PO; TRAM50TA PO; TRIA15OI TP; VENL75TA PO
== END | disposition home or self-care (01) ==
LOC: PMGWOUND 09:56
PROVIDERS: ATTEND Preventive Medicine Undersea and Hyperbaric Medicine
DX: T81.31XD Disruption of external operation (surgical) wound, not elsewhere classified, subsequent encounter (principal); I25.10 Atherosclerotic heart disease of native coronary artery without angina pectoris; J44.9 Chronic obstructive pulmonary disease, unspecified; K21.9 Gastro-esophageal reflux disease without esophagitis; E78.5 Hyperlipidemia, unspecified; I11.0 Hypertensive heart disease with heart failure; I50.9 Heart failure, unspecified; F32.9 Major depressive disorder, single episode, unspecified; E66.01 Morbid (severe) obesity due to excess calories; G47.33 Obstructive sleep apnea (adult) (pediatric); E11.9 Type 2 diabetes mellitus without complications; Z88.1 Allergy status to other antibiotic agents; Z90.49 Acquired absence of other specified parts of digestive tract; Z68.43 Body mass index [BMI] 50.0-59.9, adult; Z79.4 Long term (current) use of insulin; Y83.8 Other surgical procedures as the cause of abnormal reaction of the patient, or of later complication, without mention of misadventure at the time of the procedure
CPT/HCPCS: 99213

== ENCOUNTER → 2018-02-28 | Outpatient (CLI) | payer MEDICARE, MEDICAID ==
[2017-12-24 09:19] VITALS: BP 118/53
== END | disposition home or self-care (01) ==
LOC: PMGWOUND 10:35
PROVIDERS: ATTEND Preventive Medicine Undersea and Hyperbaric Medicine
DX: T81.31XS Disruption of external operation (surgical) wound, not elsewhere classified, sequela (principal); I11.0 Hypertensive heart disease with heart failure; I50.9 Heart failure, unspecified; K21.9 Gastro-esophageal reflux disease without esophagitis; I48.91 Unspecified atrial fibrillation; G47.33 Obstructive sleep apnea (adult) (pediatric); E78.4 Other hyperlipidemia; I10 Essential (primary) hypertension; I25.10 Atherosclerotic heart disease of native coronary artery without angina pectoris; J44.9 Chronic obstructive pulmonary disease, unspecified; F32.9 Major depressive disorder, single episode, unspecified; Z90.49 Acquired absence of other specified parts of digestive tract; Z88.1 Allergy status to other antibiotic agents; Z79.4 Long term (current) use of insulin
CPT/HCPCS: 97597

== ENCOUNTER → 2018-03-14 | Outpatient (CLI) | payer MEDICARE, OTHER ==
[2017-12-24 09:19] VITALS: BP 118/53
[~2018-03-14] MED LIST changes: -METF10003 PO; +METF10007 PO
== END | disposition home or self-care (01) ==
LOC: PMGWOUND 11:04
PROVIDERS: ATTEND Preventive Medicine Undersea and Hyperbaric Medicine
DX: T81.31XD Disruption of external operation (surgical) wound, not elsewhere classified, subsequent encounter (principal); I11.0 Hypertensive heart disease with heart failure; I50.9 Heart failure, unspecified; F32.9 Major depressive disorder, single episode, unspecified; J44.9 Chronic obstructive pulmonary disease, unspecified; I48.91 Unspecified atrial fibrillation; K21.9 Gastro-esophageal reflux disease without esophagitis; G47.33 Obstructive sleep apnea (adult) (pediatric); I25.10 Atherosclerotic heart disease of native coronary artery without angina pectoris; E78.4 Other hyperlipidemia; E66.01 Morbid (severe) obesity due to excess calories; Z68.43 Body mass index [BMI] 50.0-59.9, adult; Z79.4 Long term (current) use of insulin; Z90.49 Acquired absence of other specified parts of digestive tract; Z88.1 Allergy status to other antibiotic agents; Y83.8 Other surgical procedures as the cause of abnormal reaction of the patient, or of later complication, without mention of misadventure at the time of the procedure
CPT/HCPCS: 99213